=== PATIENT | male | born 1940 | race Caucasian/White ===

== ENCOUNTER 2021-07-20 10:59 | Emergency (ER) | payer OTHER ==
[~2021-07-20] VITALS: Ht 175.3 cm; Wt 86.4 kg
[2021-07-20 11:20] VITALS: BP 134/59
[2021-07-20 14:45] LABS: BASOPHILS # (AUTO) 0.1 X10'3 (0-0.2); BASOPHILS % (AUTO) 0.7 % (0-1); EOSINOPHILS % (AUTO) 0.1 % (0-6); HEMATOCRIT 35.8 % (42.0-52.0); HEMOGLOBIN 12.3 g/dl (14.0-17.9); LYMPHOCYTES # (AUTO) 1.8 X10'3 (1.1-4.8); LYMPHOCYTES % (AUTO) 17.3 % (21-51); MEAN CORPUSCULAR HEMOGLOBIN 29.1 PG (27.0-31.0); MEAN CORPUSCULAR HGB CONC 34.3 g/dL (33.0-36.5); MEAN CORPUSCULAR VOLUME 84.8 FL (78-98); MEAN PLATELET VOLUME 7.2 FL (7.4-10.4); MONOCYTES # (AUTO) 0.8 X10'3 (0-0.9); MONOCYTES % (AUTO) 7.7 % (2-12); NEUTROPHILS # (AUTO) 7.8 X10'3 (1.8-7.7); NEUTROPHILS % (AUTO) 74.2 % (42-75); PLATELET COUNT 434 X10'3 (140-440); RED BLOOD COUNT 4.23 X10'6 (4.70-6.10); RED CELL DISTRIBUTION WIDTH 13.2 % (11.5-14.5); WHITE BLOOD COUNT 10.5 X10'3 (4.5-11.0)
[2021-07-20 15:07] LABS: ALANINE AMINOTRANSFERASE 29 U/L (12-78); ALBUMIN 2.3 G/DL (3.4-5.0); ALBUMIN/GLOBULIN RATIO 0.5 (1.1-1.5); ALKALINE PHOSPHATASE 187 IU/L (46-116); ANION GAP 11 (8-16); ASPARTATE AMINO TRANSFERASE 23 U/L (10-37); BILIRUBIN,TOTAL 0.3 MG/DL (0.1-1.0); BLOOD UREA NITROGEN 10 MG/DL (7-18); BUN/CREATININE RATIO 9.9 (5.4-32.0); CALCIUM 8.1 MG/DL (8.5-10.1); CHLORIDE 96 MMOL/L (99-107); CREATININE 1.01 MG/DL (0.60-1.10); GLUCOSE 321 MG/DL (70-104); POTASSIUM 3.9 MMOL/L (3.5-5.1); SODIUM 134 MMOL/L (135-145); TOTAL CARBON DIOXIDE 27.2 MMOL/L (24-32); TOTAL PROTEIN 6.6 G/DL (6.4-8.2); eGFR 71 ML/MIN
== END 2021-07-20 18:08 | disposition home or self-care (01) ==
LOC: ER 10:59
DX: R53.81 Other malaise (principal); R06.02 Shortness of breath; R07.89 Other chest pain; R10.9 Unspecified abdominal pain; R30.0 Dysuria; K59.00 Constipation, unspecified; E11.9 Type 2 diabetes mellitus without complications; F17.200 Nicotine dependence, unspecified, uncomplicated; Z59.00 Homelessness unspecified; Z88.2 Allergy status to sulfonamides; Z88.0 Allergy status to penicillin; Z86.16 Personal history of COVID-19
CPT/HCPCS: 36415; 80053; 85025; 99283

== ENCOUNTER 2021-07-20 18:56 | Emergency (ER) | payer OTHER ==
[~2021-07-20] VITALS: Ht 175.3 cm; Wt 86.0 kg
[2021-07-20 19:14] VITALS: BP 135/104
== END 2021-07-20 19:38 | disposition left against medical advice (07) ==
LOC: ER 18:57
DX: Z53.21 Procedure and treatment not carried out due to patient leaving prior to being seen by health care provider (principal)

== ENCOUNTER 2021-07-21 20:23 | Emergency (ER) | payer OTHER ==
[~2021-07-21] VITALS: Ht 175.3 cm; Wt 86.4 kg
[2021-07-21 20:28] VITALS: BP 110/42
== END 2021-07-21 22:46 | disposition home or self-care (01) ==
LOC: ER 20:23
DX: Z13.89 Encounter for screening for other disorder (principal); R07.89 Other chest pain; M79.606 Pain in leg, unspecified
CPT/HCPCS: 99283

== ENCOUNTER 2021-07-22 08:27 | Emergency (ER) | payer OTHER ==
[~2021-07-22] VITALS: Ht 175.3 cm; Wt 86.4 kg
[2021-07-22 09:42] VITALS: BP 135/65
[2021-07-22] MEDS ORDERED: sulfamethoxazole/trimethoprim DS (800/160mg) tablet PO ONE (10:00)
== END 2021-07-22 12:24 | disposition home or self-care (01) ==
LOC: ER 08:28
DX: L02.01 Cutaneous abscess of face (principal); E11.9 Type 2 diabetes mellitus without complications; Z88.2 Allergy status to sulfonamides; Z88.8 Allergy status to other drugs, medicaments and biological substances
CPT/HCPCS: 99283

== ENCOUNTER 2021-07-23 07:38 | Emergency (ER) | payer OTHER ==
[~2021-07-23] VITALS: Ht 175.3 cm; Wt 54.5 kg
--- NOTE | 2021-07-23 08:20 | NUR ---
PT SPO2 AT 88% ON RA. PT IN WET CLOTHES AND COLD. I PROVIDED PT W/ DRY CLOTHES AND WARM BLANKETS. SPO2 READING IMPROVED TO 97%. PT STATES HE HAS LEG PAIN AND IS UNABLE TO WALK. PT DID WALK ABOUT 4 FEET W/STAND BY ASSIST. PT HAD WITNESSED FALL BY BYSTANDER WHO HELPED HIM UP TO CHAIR.
[2021-07-23 12:11] VITALS: BP 115/77
== END 2021-07-23 13:07 | disposition home or self-care (01) ==
LOC: ER 07:39
DX: Z13.89 Encounter for screening for other disorder (principal); L02.01 Cutaneous abscess of face; R53.1 Weakness; E11.9 Type 2 diabetes mellitus without complications; F17.200 Nicotine dependence, unspecified, uncomplicated; Z59.00 Homelessness unspecified
CPT/HCPCS: 99281

== ENCOUNTER 2021-07-28 13:54 | Emergency (ER) | payer OTHER ==
[~2021-07-28] VITALS: Ht 175.3 cm; Wt 88.6 kg
[2021-07-28] MEDS ORDERED: normal saline 1000ML IV soln IVB ONE (14:15)
[2021-07-28 14:31] LABS: BASOPHILS % (AUTO) 0.4 % (0-1); EOSINOPHILS # (AUTO) 0.1 X10'3 (0-0.9); EOSINOPHILS % (AUTO) 0.9 % (0-6); HEMATOCRIT 29.5 % (42.0-52.0); HEMOGLOBIN 9.9 g/dl (14.0-17.9); LYMPHOCYTES # (AUTO) 1.5 X10'3 (1.1-4.8); LYMPHOCYTES % (AUTO) 27.5 % (21-51); MEAN CORPUSCULAR HGB CONC 33.5 g/dL (33.0-36.5); MEAN CORPUSCULAR VOLUME 86.7 FL (78-98); MEAN PLATELET VOLUME 7.3 FL (7.4-10.4); MONOCYTES # (AUTO) 0.4 X10'3 (0-0.9); MONOCYTES % (AUTO) 7.4 % (2-12); NEUTROPHILS # (AUTO) 3.5 X10'3 (1.8-7.7); NEUTROPHILS % (AUTO) 63.8 % (42-75); PLATELET COUNT 237 X10'3 (140-440); RED BLOOD COUNT 3.41 X10'6 (4.70-6.10); RED CELL DISTRIBUTION WIDTH 13.5 % (11.5-14.5); WHITE BLOOD COUNT 5.5 X10'3 (4.5-11.0)
[2021-07-28 15:00] LABS: ALANINE AMINOTRANSFERASE 30 U/L (12-78); ALBUMIN 2.4 G/DL (3.4-5.0); ALBUMIN/GLOBULIN RATIO 0.7 (1.1-1.5); ALKALINE PHOSPHATASE 80 IU/L (46-116); ANION GAP 7 (8-16); ASPARTATE AMINO TRANSFERASE 24 U/L (10-37); BILIRUBIN,TOTAL 0.3 MG/DL (0.1-1.0); BLOOD UREA NITROGEN 15 MG/DL (7-18); BUN/CREATININE RATIO 12.5 (5.4-32.0); CALCIUM 7.7 MG/DL (8.5-10.1); CHLORIDE 96 MMOL/L (99-107); LIPASE 303 U/L (73-393); POTASSIUM 4.1 MMOL/L (3.5-5.1); SODIUM 131 MMOL/L (135-145); eGFR 58 ML/MIN
[2021-07-28 15:01] LABS: GLUCOSE 484 MG/DL (70-104)
[2021-07-28 15:01] LABS: CLARITY,URINE CLEAR (Clear); GLUCOSE, URINE >=1000 mg/dl (Neg); KETONES,URINE NEGATIVE (Neg); LEUKOCYTE ESTERASE ,URINE NEGATIVE (Neg); NITRITES, URINE NEGATIVE (Neg); OCCULT BLOOD,URINE NEGATIVE (Neg); PH,URINE 6.5 (4.8-8.0); PROTEIN,URINE NEGATIVE (Neg); UROBILINOGEN,URINE 0.2 E.U/dL (0.2-1.0)
[2021-07-28 15:15] LABS: UA COLLECTION TYPE VOIDED
[2021-07-28 15:16] LABS: COLOR,URINE STRAW (Yellow)
[2021-07-28 15:17] LABS: BACTERIA,URINE NONE SEEN /HPF (Neg); MUCUS STRANDS NONE SEEN /LPF (Neg); RBC,URINE NONE SEEN /HPF (0-2); SQUAMOUS EPITHELIAL CELL,UR FEW /LPF (FEW); WBC,URINE 0-4 /HPF (0-4)
[2021-07-28] MEDS ORDERED: insulin regular, human 10 units/0.1 ml syringe SQ ONE (16:15)
[2021-07-28] MEDS ORDERED: METF-900 PO (16:22)
[2021-07-28 16:58] VITALS: BP 156/90
== END 2021-07-28 17:01 | disposition home or self-care (01) ==
LOC: ER 13:54
DX: E11.65 Type 2 diabetes mellitus with hyperglycemia (principal); R11.0 Nausea; R53.1 Weakness; F17.200 Nicotine dependence, unspecified, uncomplicated; Z59.00 Homelessness unspecified; Z79.899 Other long term (current) drug therapy
CPT/HCPCS: 36415; 80053; 81001; 82948; 83690; 85025; 96372; 99284; J1815; J7030